=== PATIENT | male | born 1955 | race Caucasian/White ===

== ENCOUNTER 2021-07-11 09:40 | Outpatient (REF) | payer BC, SELFPAY ==
--- NOTE | ~2021-07-11 | XR_ITS ---
EXAMINATION: XR CHEST CLINICAL INFORMATION: Chronic cough COMPARISON: None TECHNIQUE: 2 views of the chest were obtained. FINDINGS: Normal symmetric lung volumes. No parenchymal consolidation. No pleural effusion. No pneumothorax. Cardiomediastinal silhouette and pulmonary vascularity are within normal limits. Aorta is atherosclerotic. No acute osseous abnormalities. XR/XR chest 2V IMPRESSION: Unremarkable examination.
--- NOTE | ~2021-07-11 | XR_ITS ---
EXAMINATION: XR SINUSES CLINICAL INFORMATION: Sinusitis. Chronic cough. COMPARISON: None TECHNIQUE: 3 views of the sinuses were obtained. FINDINGS: Frontal sinuses appear well aerated although the right frontal sinus is mildly hypoplastic compared with the left. Cannot exclude some mild mucosal thickening of the right maxillary sinus. Ethmoid sinuses appear well aerated. The mastoid air cells are well aerated. No gross osseous fracture. XR/XR sinus min 3V IMPRESSION: Possible mild right maxillary sinus disease. This may be further evaluated with sinus CT series if clinically indicated.
== END 2021-07-11 09:41 | disposition home or self-care (01) ==
LOC: HO.XRAY 09:40
PROVIDERS: Visit Provider Otolaryngology
DX: J32.9 Chronic sinusitis, unspecified (principal); R05.9 Cough, unspecified; J33.8 Other polyp of sinus
CPT/HCPCS: 70220; 71046

== ENCOUNTER 2024-10-14 14:49 | Outpatient (AMB) | payer BC, SELFPAY ==
--- OUTSIDE RECORDS SUMMARY | 2024-10-14 16:12 | XMS_ITS | Patient Health Record ---
Author Organization [facility] Address [address] [facility] [place] [address] Care Team Providers Care Warp Bleaching Vat Tender Name Role Phone Maria Luisa MANCIA, Fely Primary Care Provide r Unavailable Gabby Moore Unavailable [phone] Allergies Allergen (clinical drug ingredient) Drug/Non Drug Allergy documented on EMR Reaction Allergy Type Onset Date Status Dander dander (uncoded) sinus reaction Allergy Active Pollen Pollen sinus reaction Allergy Activ e Substance with sulfonamide structure and antibacterial mechanism of action (substance) Sulfa Antibiotics rash Drug Allergy Active Reason For Referral No Information Medications Medication SIG (Take, Route, Frequency, Duration) Notes Start Date End Date Status Losartan Potassium 50 MG 1 tablet Orally Once a day; Duration: 30 day(s) Active Levothyroxine Sodium 137 MCG 1 tablet in the morning on an empty stomach Orally Once a day; Duration: 30 day(s) Active Vitamin D Active Fish Oil Active Magnesium Active B Complex Active Walking Boot/Pneumatic As directed Wear Daily; Duration: Until further notice Active Voltaren 1 % as directed Externally 02/13/2023 Active Social History Tobacco Use: Social History Observation Description Date Details (start date - stop date) Never Smoker NA - NA Tobacco Use/Smoking Question Answer Notes Are you a: nonsmoker Additional Findings: Tobacco Non-User Current no n-smoker Tobacco use other than smoking: Question Answer Notes Are you an other tobacco user? No Problems Problem Type SNOMED Code ICD Code Onset Dates Problem Status W/U Status Risk Notes Problem Acquired hallux rigidus (6051302) Hallux rigidus, left foot (M20.22) Active confirmed Problem Localized, primary osteoarthritis of the ankle and/or foot (091758108) Primary osteoarthritis of left foot (M19.072) Active confirmed Problem Acquired hallux valgus (00198029) Hallux valgus, left (M20.12) Active confirmed Vital Signs Blood pressure diastolic 85 mm Hg 01/22/2024 Height 5ft10.5in in 01/22/2024 Blood pressure systolic 129 mm Hg 01/22/2024 Weight 190 lbs 01/22/2024 BMI 26.87 kg/m2 01/22/2024 Encounters Encounter Location Date Provider Diagnosis Surgery [facility] ([facility]) [address] [place] [address] 12/26/2023 Gabby Perica [facility] [address] [address] 12/12/2023 Gabby Perica Pain in left foot M79.672 ; Hallux limitus, left M20.5X2 ; Hallux valgus, left M20.12 and Primary osteoarthritis of left foot M19.072 [facility] [address] [address] 01/01/2024 Gabby Perica Hallux limitus, left M20.5X2 [facility] [address] [address] 01/08/2024 Gabby Perica Hallux limitus, left M20.5X2 [facility] [address] [address] 01/22/2024 Gabby Perica Hallux limitus, left M20.5X2 [facility] [address] [address] 12/27/2023 Gabby Perica [facility] [address] [address] 12/27/2023 Gabby Perica [facility] [address] [address] 01/02/2024 Gabby Perica Assessments Encounter Date Diagnosis (ICD Code) Assessment Notes Treatment Notes Treatment Clinical Notes Section Notes 12/12/2023 Pain in left foot (ICD-10 - M79.672) 01/01/2024 Hallux limitus, left (ICD-10 - M20.5X2) 01/08/2024 Hallux limitus, left (ICD-10 - M20.5X2) 01/22/2024 Hallux limitus, left (ICD-10 - M20.5X2) 12/12/2023 Hallux valgus, left (ICD-10 - M20.12) 12/12/2023 Hallux limitus, left (ICD-10 - M20.5X2) 12/12/2023 Primary osteoarthritis of left foot (ICD-10 - M19.072) Plan Of Treatment Pending Test Test Name Order Date X ray : Foot, left 3V 02/13/2023 X ray : Foot, left 3V 12/12/2023 X ray : Foot, left 3V 01/01/2024 X ray : Foot, left 3V 01/08/2024 X ray : Foot, left 3V 01/22/2024 Insurance Providers Payer Name Payer Address Payer Phone Subscriber Number Group Number Insured Name Patient Relationship to Insured Coverage Start Date Coverage End Date Valentino Parnell [address] [place] [address] [id number] Poncho Aguila Self - patient is the insured Medical (General) History Medical History History ICD Code Arthritis High blood pressure thyroid Surgical History Surgery Date(Month/Year) foot surgery, right 2018 left foot surgery colonoscopy wisdom teeth extraction Mod Lezama Left or possible 1st MPJ Imp lant Left P/B 12/26/23
--- OUTSIDE RECORDS SUMMARY | 2024-10-14 16:12 | XMS_ITS | Clinical Summary ---
Author Organization 175 [facility] Address [address] [place] [address] Phone Care Team Providers Care Space Studies Faculty Member Name Role Phone Fely Glass MD Primary Care Provide r Allergies Active Allergy Reactions Criticality Noted Date Comments Cat Dander 03/07/2011 Dog Dander 03/07/2011 House Dust 03/07/2011 Lisinopril 06/13/2019 heart fluttering Pollen Extracts 03/07/2011 Sulfa (Sulfonamide Antibiotics) Hives,Rash Low 07/27/2005 Medications UNABLE TO FIND Allergy Injection (ALLERGY MONTHLY INJECTION, HISTORIC) Sig - Route: Inject as directed. - Injection Active calcipotriene-b etamethasone (TACLONEX) ointment Apply sparingly once or twice daily to psoriasis as needed AVOID SENSITIVE SKIN 1 Active calcium carbonate (TUMS) 500 mg (200 mg elemental calcium) chewable tablet 1 Tablet. 2 Active cholecalciferol (VITAMIN D-3) 10 mcg (400 unit) tablet Take 10 mcg by mouth. 2 Active cyclobenzaprine (FLEXERIL) 10 mg tablet Take 1 Tab by mouth 2 times daily as needed for Muscle spasms. 1 Active fluticasone propionate (FLONASE) 50 mcg/actuation nasal spray INHALE 2 SPRAYS INTO EACH NOSTRIL EVERY DAY 2 Active meclizine (ANTIVERT) 12.5 mg tablet See Instructions, TAKE 1 TABLET BY MOUTH 3 TIMES A DAY, # 60 tablet, 0 Refills, Maintenance, 12/10/22 9:04:00 EDT, [facility]/pharmacy #[id number], 173.2, cm, 10/04/22 13:56:00 EDT, Height 3 Active naproxen (NAPROSYN) 500 mg tablet Take 1 Tab by mouth 2 times daily (with meals). As needed for pain 0 Active omega-3 acid ethyl esters (LOVAZA) 1 gram capsule Take by mouth. 2 Active OMEGA-3 FATTY ACIDS-FISH OIL ORAL Take by mouth. Activ e sildenafiL (VIAGRA) 50 mg tablet 1 po hs prn erectile dysfunction 2 Active tacrolimus (PROTOPIC) 0.03 % ointment APPLY SPARINGLY TWICE A DAY TO ECZEMA ON EYELIDS IF ITCHY 1 Active triamcinolone (KENALOG) 0.1 % cream 80 gms compounded with Cerave 240mg; apply bid 6 Active levothyroxine (SYNTHROID, LEVOTHROID) 125 mcg tablet Take 1 Tablet by mouth daily. 2 Active vitamin E acetate (VITAMIN E ORAL) Take by mouth. 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 AHI 30. 33 unclassified apneas, 77 obstructive apneas and 72 hypopneas. Average oxygen saturation 92% with oxygen vicente 82%. Obstructive sleep apnea-severe with mostly obstructive apneas and hypopneas; frequent unclassified apneas and without nocturnal hypoxemia based on 2021 home sleep test. COVID-19 02/04/2021 Overview (03/24/2024): 02/15 Hypertension 01/14/2019 Psoriasis 05/18/2016 Overview (03/24/2024): Psoriasis 05/12 right leg Sebaceous cyst 08/09/2015 Hand arthritis 04/13/2015 Hypothyroid 04/27/2011 Diverticulitis of colon without hemorrhage 12/15 Overview (03/24/2024): Incidental finding at colonoscopy 12/16/2007. Allergic rhinitis 12/18/2005 Immunizations Name Administration Dates Next Due Influenza Quadravalent, MDCK , 0.5ml, with preservative (Flucelvax) 6mo and older 11/14/2017 Influenza trivalent, 0.5mL, preservative free (Fluarix; FluLaval; Fluzone) ages 6mo and older (Afluria) 3 years and older 12/22/2019,01/05/2016,12/23/2014,2013,01/15/2013,12/28/2011,03/22/2011 Influenza, Unspecified 12/14/2018 Td Tetanus diptheria (Tdvax) 7yo and older 02/12/2019 Td, Unspecified 09/23/2001 Tdap Tetanus diptheria acell ular pertussis (Boostrix; Adacel) 7yo and older 03/07/2011 Surgical History Surgery Date Site/Laterality Comments EXCISION BENIGN SKIN LESION TRUNK / ARM / LEG PROCEDURE: GA EXCISION TUMOR SOFT TISSUE BACK/FLANK SUBQ <3CM; COMMENT: arm and flank - fatty tumors BUNIONECTOMY PROCEDURE: GA CORRJ HLX VLGS BNCTY SESMDC W/DOUBLE OSTEOTOMY; COMMENT: Bone fragment removed. COLONOSCOPY 12/16/2007 PROCEDURE: GA COLONOSCOPY FLX DX W/COLLJ SPEC WHEN PFRMD; COMMENT: diverticulosis LIPOMA RESECTION 03/14/2021 Bilateral PROCEDURE: SKIN TISSUE EXCISION(LIPOMA); COMMENT: excision of 2 angiolipomas (right and left flank) - Dr. Connor Velazco Medical History Medical History Date Comments Allergic rhinitis, cause unspecified DX:Allergic rhinitis, cause unspecified Diverticulosis of colon (wit hout mention of hemorrhage) 12/16/2007 DX:Diverticulosis of colon ( without mention of hemorrhage); COMMENT: Incidental finding at colonoscopy 12/16/2007. Special screening for malign ant neoplasms, colon 12/16/2007 DX:Special screening for mal ignant neoplasms, colon; COMMENT: Negative colonoscopy 12/16/2007, no colon cancer screening needed for 10 years. 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 CHF, hip fx, epilepsy Maternal Grandfather [place] x br onchitis Maternal Grandmother [place] Mother (Age 69) Liver fail ure - alcohol Paternal Grandfather [place] Paternal Grandmother [place] Sister 1 Alive Healthy? Sister 2 Alive Healthy? Son 1 Alive Healthy Son 2 Alive Healhty Social History Tobacco Use Types Packs/Day Years Used Date Smoking Tobacco: Former Cigarettes Q uit: 08/26/2010 Smokeless Tobacco: Never Alcohol Use Standard Drinks/Week Comments Yes 0 (1 standard drink = 0.6 oz pur e alcohol) Sex and Gender Information Value Date Recorded Sex Assigned at Not on file Legal Sex Male 1:07 AM EST Gender Identity Not on file Sexual Orientation Not on file Obstetrics History Last Filed Vital Signs Vital Sign Reading Time Taken Comments Blood Pressure 128/82 09/20/2023 4:26 PM EDT Sitting L Arm Pulse 95 09/20/2023 4:00 PM EDT Temperature - - Respiratory Rate - - Oxygen Saturation - - Inhaled Oxygen Concentration - - Weight 91.3 kg (201 lb 3.2 oz) 09/20/2023 4:00 PM EDT Height 177.8 cm (5' 10 ) 09/20/2023 4:0 0 PM EDT Body Mass Index 28.87 09/20/2023 4:00 PM EDT Plan of Treatment Upcoming Encounters Date Type Department Care Team (Late st Contact Info) Description 11/19/2024 3:35 PM EDT Office Visit Pulmonolgy - [place] [address] [facility] [address] [place] [id number] Jessica Lobato, KAILASH [address] [facility] [address] [place] [address] Health Maintenance Due Date Last Done Comments COVID-19 Vaccine (#1) 1962 Pneumococcal Vaccine: 50+ Years (1 of 2 - PCV) 1976 Zoster Vaccines (1 of 2) 1976 Abdominal Aortic Aneurysm (AAA) Screen 02/04/2022 Social Influencers of Health Screening 02/04/2022 Falls Risk Assessment 2022 Hypertension/CHF/CAD Annual BMP Blood Test 10/05/2022 10/05/2021 Depression Screening 02/27/2024 Influenza Vaccine (#1) 2024 0, 12/14/2018, 11/14/2017, Additional history exists Cholesterol Screening (Lipid Panel) 10/05/2026 10/05/2021 Colorectal Cancer Screening: Colonoscopy 01/10/2029 01/10/2019 DTaP,Tdap,and Td Vaccines (4 - Td or Tdap) 02/12/2029 02/12/2019, 03/07/2011, 09/23/2001 RSV Immunization Adult Patients (1 - 1-dose 75+ series) 2032 Hepatitis C Screening Completed 09/02/2013 HIB Vaccines Aged Out No longer eligi ble based on patient's age to complete this topic HPV Vaccines Aged Out No longer eligi ble based on patient's age to complete this topic Hepatitis A Vaccines Aged Out No long er eligible based on patient's age to complete this topic Hepatitis B Vaccines Aged Out No long er eligible based on patient's age to complete this topic IPV Vaccines Aged Out No longer eligi ble based on patient's age to complete this topic MMR Vaccines Aged Out No longer eligi ble based on patient's age to complete this topic Meningococcal ACWY Vaccine Aged Out N o longer eligible based on patient's age to complete this topic Meningococcal B Vaccine Aged Out No l onger eligible based on patient's age to complete this topic RSV Immunization Patients Under 20 months Aged Out No longer eligible based on patient's age to complete this topic Varicella Vaccines Aged Out No longer eligible based on patient's age to complete this topic Procedures Procedure Name Priority Date/Time Associated Diagnosis Comments HM ANNUAL BMP BLOOD TEST Routine 10/05/2021 LIPID PANEL Routine 10/05/2021 COLONOSCOPY Routine 01/10/2019 HEPATITIS C SCREENING Routine 09/02/2013 from Last 3 Months or Most Recently Relevant to Health Maintenance Results * Annual BMP Blood Test (10/05/2021) [facility] Annual BMP Blood Test abstracted [facility] Provider HEALTH MAINTENANCE Final Result * (ABNORMAL) Lipid panel (10/05/2021) [facility] LDL/HDL Ratio 4 0 - 4 Triglycerides 155(A) 0 - 150 mg/dL Cholesterol 192 0 - 200 mg/dL HDL 55 >=40 mg/dL LDL Cholesterol 106(A) 0 - 100 mg/dL Blood Venous blood specimen / Unknown Result [facility] Provider LAB BLOOD ORDERABLES Katherine l Result * Colonoscopy (01/10/2019) [facility] Colonoscopy no interpretation , abstracted Anatomical Region Laterality Modality Other [facility] Provider HEALTH MAINTENANCE Final Result * Hepatitis C Screening (09/02/2013) [facility] Hepatitis C Screening abstracted [facility] Provider HEALTH MAINTENANCE Final Result from Last 3 Months or Most Recently Relevant to Health Maintenance Insurance [facility] Care Teams Space Studies Faculty Member Relationship Specialty Start Date End Date Fely Glass MD [address] [place] [address] [place] PCP - General 10/29/23
== END 2024-10-14 14:53 | disposition home or self-care (01) ==
LOC: HO.HMGAL 14:49
PROVIDERS: PCP Internal Medicine; Visit Provider Registered Nurse Emergency
DX: J30.89 Other allergic rhinitis (principal)
CPT/HCPCS: 95117; 95165

== ENCOUNTER 2024-11-03 10:30 | Outpatient (AMB) | payer BC, SELFPAY ==
--- OUTSIDE RECORDS SUMMARY | 2023-12-26 10:45 | XMS_ITS ---
Author Organization [facility] Address [address] [facility] [place] [address] Care Team Providers Care Glass Cut Off Supervisor Name Role Phone Maria Luisa MANCIA, Fely Primary Care Provide r Unavailable Gabby Moore Unavailable [phone] Encounters Encounter Location Date Provider Diagnosis Surgery [facility] ([facility]/[address] [place] [address] 12/26/2023 Gabby Moore Plan Of Treatment No Information Progress Notes * Poncho AGUILA BDOB: [birth year] (69 yo M)Acc No.[id number]:12/26/2023 Patient: Breann JOVELPoncho Provider: Andrei Moore DPM :1955 A ge:68 Y S ex:Male Date:12/26/2023 Address:[address] [facility] [place] Pcp:Fely Glass MD * Images: * The named appointment provid er may or may not be the originator of this progress note, and it is not deemed complete until electronically signed by the appointment provider. Sign off status: Pending * Provider: Andrei Moore DPM Date: 1 Generated for Sofia ng/Faxing/eTransmitting on: 0 11/03/2024 12:39 PM EDT
--- OUTSIDE RECORDS SUMMARY | 2024-11-03 12:40 | XMS_ITS | Patient Health Record ---
Author Organization [facility] Address [address] [facility] [place] [address] Care Team Providers Care Tobacco Stripper Hand Name Role Phone Maria Luisa MANCIA, Fely Primary Care Provide r Unavailable Gabby Moore Unavailable [phone] Allergies Allergen (clinical drug ingredient) Drug/Non Drug [...] Status Risk Notes Problem Acquired hallux rigidus (5914248) Hallux rigidus, left foot (M20.22) Active confirmed Problem Localized, primary osteoarthritis of the ankle and/or foot (573387817) Primary osteoarthritis of left foot (M19.072) Active confirmed Problem Acquired hallux valgus (09615304) Hallux valgus, left (M20.12) Active confirmed Vital Signs Blood pressure diastolic 85 mm Hg 01/22/2024 Height 5ft10.5in in 01/22/2024 Blood pressure systolic 129 mm Hg 01/22/2024 Weight 190 lbs 01/22/2024 BMI 26.87 kg/m2 01/22/2024 Encounters Encounter Location Date Provider Diagnosis Surgery [facility] ([facility]) [address] [place] [address] 12/26/2023 Gabby Perica [facility] [address] [address] 12/12/2023 Gabby Perica Pain in left foot M79.672 ; Hallux limitus, left M20.5X2 ; Hallux valgus, left M20.12 and Primary osteoarthritis of left foot M19.[address] [facility] [address] [address] 01/01/2024 Gabby Perica Hallux limitus, left M20.5X2 [facility] [address] [address] 01/08/2024 Gabby Perica Hallux limitus, left M20.5X2 [facility] [address] [address] 01/22/2024 Gabby Perica Hallux limitus, left M20.5X2 [facility] [address] [address] 12/27/2023 Gabby Perica [facility] [address] [address] 12/27/2023 Gabby Perica [facility] [address] [address] 01/02/2024 Gabby Perica Assessments Encounter Date Diagnosis [...] Date Coverage End Date Valentino Parnell [address] [place] [address] [id number] Poncho Aguila Self - patient is the insured Medical (General) History Medical History History ICD Code Arthritis High blood pressure thyroid Surgical History Surgery Date(Month/Year) foot surgery, right 2018 left foot surgery colonoscopy wisdom teeth extraction Mod Lezama Left or possible 1st MPJ Imp lant Left P/B 12/26/23
--- OUTSIDE RECORDS SUMMARY | 2024-11-03 12:40 | XMS_ITS | Clinical Summary ---
Author Organization 175 [facility] Address [address] [facility] [address] Phone Care Team Providers Care Minister Helper Name Role Phone Fely Glass MD Primary [...] tablet, 0 Refills, Maintenance, 12/10/22 9:04:00 EDT, [facility]/pharmacy #[id number], 173.2, cm, 10/04/22 13:56:00 EDT, Height [...] 06/10/2021 Obstructive sleep apnea 05/23/2021 Overview (03/24/2024): [facility] Home sleep test 05/15/2021; weight 185; BMI [...] LESION TRUNK / ARM / LEG PROCEDURE: IN EXCISION TUMOR SOFT TISSUE BACK/FLANK SUBQ <3CM; COMMENT: arm and flank - fatty tumors BUNIONECTOMY PROCEDURE: IN CORRJ HLX VLGS BNCTY SESMDC W/DOUBLE OSTEOTOMY; COMMENT: Bone fragment removed. COLONOSCOPY 12/16/2007 PROCEDURE: IN COLONOSCOPY FLX DX W/COLLJ SPEC WHEN PFRMD; [...] Description 11/19/2024 3:35 PM EDT Office Visit Pulmon[address] [place] [address] Jessica Lobato, KAILASH [address] [place] [address] Health Maintenance Due Date Last Done Comments [...] Results * Annual BMP Blood Test (10/05/2021) [facility] Annual BMP Blood Test abstracted [facility] Provider HEALTH MAINTENANCE Final Result * (ABNORMAL) Lipid panel (10/05/2021) [facility] LDL/HDL Ratio 4 0 - 4 Triglycerides 155(A) 0 - 150 mg/dL Cholesterol 192 0 - 200 mg/dL HDL 55 >=40 mg/dL LDL Cholesterol 106(A) 0 - 100 mg/dL Blood Venous blood specimen / Unknown Result [facility] Provider LAB BLOOD ORDERABLES Katherine l Result * Colonoscopy (01/10/2019) [facility] Colonoscopy no interpretation , abstracted Anatomical Region Laterality Modality Other [facility] Provider HEALTH MAINTENANCE Final Result * Hepatitis C Screening (09/02/2013) [facility] Hepatitis C Screening abstracted [facility] Provider HEALTH MAINTENANCE Final Result from Last 3 Months or Most Recently Relevant to Health Maintenance Insurance [facility] Care Teams Minister Helper Relationship Specialty Start Date End Date Fely Glass MD [address] [place] [address] [place] PCP - General 10/29/23
== END 2024-11-03 10:53 | disposition home or self-care (01) ==
LOC: HO.HMGAL 10:30
PROVIDERS: PCP Internal Medicine; Visit Provider Registered Nurse Emergency
DX: J30.89 Other allergic rhinitis (principal)
CPT/HCPCS: 95117; 95165

== ENCOUNTER 2024-11-17 11:08 | Outpatient (AMB) | payer BC, SELFPAY ==
--- OUTSIDE RECORDS SUMMARY | 2023-12-26 10:45 | XMS_ITS ---
Author Organization [facility] Address [address] [facility] [place] [address] Care Team Providers Care Manager Shell Name Role Phone Maria Luisa MANCIA, Fely Primary Care Provide r Unavailable Gabby Moore Unavailable [phone] Encounters Encounter Location Date Provider Diagnosis Surgery [facility] ([facility]/[address] [place] [address] 12/26/2023 Gabby Moore Plan Of Treatment No Information Progress Notes * Poncho AGUILA BDOB: [birth year] (69 yo M)Acc No.[id number]:12/26/2023 Patient: Breann JOVELPoncho Provider: Andrei Moore DPM :1955 A ge:68 Y S ex:Male Date:12/26/2023 Address:[address] [facility] [place] Pcp:Fely Glass MD * Images: * The named appointment provid er may or may not be the originator of this progress note, and it is not deemed complete until electronically signed by the appointment provider. Sign off status: Pending * Provider: Andrei Moore DPM Date: 1 Generated for Sofia ng/Fagiovannig/eTransmitting on: 0 11/17/2024 01:48 PM EDT
--- OUTSIDE RECORDS SUMMARY | 2024-11-17 13:48 | XMS_ITS | Clinical Summary ---
Author Organization 175 [facility] Address [address] [place] [address] Phone Care Team Providers Care Assistant Cook Name Role Phone Fely Glass MD Primary [...] tablet, 0 Refills, Maintenance, 12/10/22 9:04:00 EDT, [facility]/pharmacy #[id number], 173.2, cm, 10/04/22 13:56:00 EDT, [...] 06/10/2021 Obstructive sleep apnea 05/23/2021 Overview (03/24/2024): [facility] Home sleep test 05/15/2021; weight [...] LESION TRUNK / ARM / LEG PROCEDURE: [place] EXCISION TUMOR SOFT TISSUE BACK/FLANK SUBQ <3CM; COMMENT: arm and flank - fatty tumors BUNIONECTOMY PROCEDURE: [place] CORRJ HLX VLGS BNCTY SESMDC W/DOUBLE OSTEOTOMY; COMMENT: Bone fragment removed. COLONOSCOPY 12/16/2007 PROCEDURE: [place] COLONOSCOPY FLX DX W/COLLJ SPEC WHEN PFRMD; [...] Description 11/19/2024 3:35 PM EDT Office Visit Pulmonology - [address] [place] [address] Jessica Lobato, KAILASH [address] [place] [address] Health Maintenance Due Date Last [...] Results * Annual BMP Blood Test (10/05/2021) [facility] Annual BMP Blood Test abstracted [facility] Provider HEALTH MAINTENANCE Final Result * (ABNORMAL) Lipid panel (10/05/2021) [facility] LDL/HDL Ratio 4 0 - 4 Triglycerides 155(A) 0 - 150 mg/dL Cholesterol 192 0 - 200 mg/dL HDL 55 >=40 mg/dL LDL Cholesterol 106(A) 0 - 100 mg/dL Blood Venous blood specimen / Unknown [facility] Provider LAB BLOOD ORDERABLES Katherine l Result * Colonoscopy (01/10/2019) [facility] Colonoscopy no interpretation , abstracted Anatomical Region Laterality Modality Other [facility] Provider HEALTH MAINTENANCE Final Result * Hepatitis C Screening (09/02/2013) [facility] Hepatitis C Screening abstracted [facility] Provider HEALTH MAINTENANCE Final Result from Last 3 Months or Most Recently Relevant to Health Maintenance Insurance [facility] Care Teams Assistant Cook Relationship Specialty Start Date End Date Fely Glass MD [address] [place] [address] [place] PCP - General 10/29/23
--- OUTSIDE RECORDS SUMMARY | 2024-11-17 13:49 | XMS_ITS | Patient Health Record ---
Author Organization [facility] Address [address] [facility] [place] [address] Care Team Providers Care Appeals Coordinator Name Role Phone Maria Luisa MANCIA, Fely Primary Care Provide r Unavailable Gabby Moore Unavailable [phone] Allergies Allergen (clinical drug ingredient) Drug/Non Drug [...] Status Risk Notes Problem Acquired hallux rigidus (5751484) Hallux rigidus, left foot (M20.22) Active confirmed Problem Localized, primary osteoarthritis of the ankle and/or foot (692245214) Primary osteoarthritis of left foot (M19.072) Active confirmed Problem Acquired hallux valgus (31628818) Hallux valgus, left (M20.12) Active confirmed Vital Signs Blood pressure diastolic 85 mm Hg 01/22/2024 Height 5ft10.5in in 01/22/2024 Blood pressure systolic 129 mm Hg 01/22/2024 Weight 190 lbs 01/22/2024 BMI 26.87 kg/m2 01/22/2024 Encounters Encounter Location Date Provider Diagnosis Surgery [facility] ([facility]) [address] [place] [address] 12/26/2023 Gabby Perica [facility] [address] [address] 12/12/2023 Gabby Perica Pain in left foot M79.672 ; Hallux limitus, left M20.5X2 ; Hallux valgus, left M20.12 and Primary osteoarthritis of left foot M19.[address] [facility] [address] [address] 01/01/2024 Gabby Perica Hallux limitus, left M20.5X2 [facility] [address] [address] 01/08/2024 Gabby Perica Hallux limitus, left M20.5X2 [facility] [address] [address] 01/22/2024 Gabby Perica Hallux limitus, left M20.5X2 [facility] [address] [address] 12/27/2023 Gabby Perica [facility] [address] [address] 12/27/2023 Gabby Perica [facility] [address] [address] 01/02/2024 Gabby Perica Assessments Encounter Date Diagnosis [...] Date Coverage End Date Valentino Parnell [address] [place] [address] [id number] Poncho Aguila Self - patient is the insured Medical (General) History Medical History History ICD Code Arthritis High blood pressure thyroid Surgical History Surgery Date(Month/Year) foot surgery, right 2018 left foot surgery colonoscopy wisdom teeth extraction Mod Lezama Left or possible 1st MPJ Imp lant Left P/B 12/26/23
== END 2024-11-17 11:33 | disposition home or self-care (01) ==
LOC: HO.HMGAL 11:08
PROVIDERS: PCP Internal Medicine; Visit Provider Registered Nurse Emergency
DX: J30.89 Other allergic rhinitis (principal)
CPT/HCPCS: 95117; 95165

== ENCOUNTER 2024-12-15 15:30 | Outpatient (AMB) | payer BC, SELFPAY ==
--- OUTSIDE RECORDS SUMMARY | 2023-12-11 11:45 | XMS_ITS ---
Author Organization [facility] Address [address] [place] [address] Care Team Providers Care Home Mission Worker Name Role Phone Maria Luisa MANCIA, Fely Primary Care Provide r Unavailable Gabby Moore Unavailable [phone] Medications Medication SIG (Take, Route, Frequency, Duration) Notes Start Date End Date Status Voltaren 1 % as directed Externally 02/13/2023 Active Losartan Potassium 50 MG 1 tablet Orally Once a day; Duration: 30 day(s) Active Levothyroxine Sodium 137 MCG 1 tablet in the morning on an empty stomach Orally Once a day; Duration: 30 day(s) Active Encounters Encounter Location Date Provider Diagnosis [address] [address] 12/11/2023 Gabby Moore Plan Of Treatment No Information Progress Notes * Poncho AGUILA BDOB: [birth year] (69 yo M)Acc No.[id number]:12/11/2023 Progress Note Patient: Poncho MARRUFO Provider: Andrei Moore DPM :1955 A ge:68 Y S ex:Male Date:12/11/2023 Address:[address], [place] Pcp:Fely Glass MD Subjective: * Chief Complaints: [...] DPM Date: Generated for Sofia grimaldo/Lety/Radha on: 07:44 PM EDT
--- OUTSIDE RECORDS SUMMARY | 2023-12-26 10:45 | XMS_ITS ---
Author Organization [facility] Address [address] [facility] [place] [address] Care Team Providers Care Commercial Loan Underwriter Name Role Phone Maria Luisa MANCIA, Fely Primary Care Provide r Unavailable Gabby Moore Unavailable [phone] Encounters Encounter Location Date Provider Diagnosis Surgery [facility] ([facility]/[address] [place] [address] 12/26/2023 Gabby Moore Plan Of Treatment No Information Progress Notes * Poncho AGUILA BDOB: [birth year] (69 yo M)Acc No.[id number]:12/26/2023 Patient: Breann JOVELPoncho Provider: Andrei Moore DPM :1955 A ge:68 Y S ex:Male Date:12/26/2023 Address:[address] [facility] [place] Pcp:Fely Glass MD * Images: * The named appointment provid er may or may not be the originator of this progress note, and it is not deemed complete until electronically signed by the appointment provider. Sign off status: Pending * Provider: Andrei Moore DPM Date: Generated for Sofia ng/Faxing/eTransmitting on: 07:43 PM EDT
--- OUTSIDE RECORDS SUMMARY | 2024-12-15 19:44 | XMS_ITS | Patient Health Record ---
Author Organization [facility] Address [address] [facility] [place] [address] Care Team Providers Care Head Of Data Name Role Phone Maria Luisa MANCIA, Fely Primary Care Provide r Unavailable Gabby Moore Unavailable [phone] Allergies Allergen (clinical drug ingredient) Drug/Non Drug [...] Status Risk Notes Problem Acquired hallux rigidus (1267352) Hallux rigidus, left foot (M20.22) Active confirmed Problem Localized, primary osteoarthritis of the ankle and/or foot (441234714) Primary osteoarthritis of left foot (M19.072) Active confirmed Problem Acquired hallux valgus (72153925) Hallux valgus, left (M20.12) Active confirmed Vital Signs Blood pressure diastolic 85 mm Hg 01/22/2024 Height 5ft10.5in in 01/22/2024 Blood pressure systolic 129 mm Hg 01/22/2024 Weight 190 lbs 01/22/2024 BMI 26.87 kg/m2 01/22/2024 Encounters Encounter Location Date Provider Diagnosis Surgery [facility] ([facility]) [address] [place] [address] 12/26/2023 Gabby Perica [facility] [address] [address] 01/01/2024 Gabby Perica Hallux limitus, left M20.5X2 [facility] [address] [address] 01/08/2024 Gabby Perica Hallux limitus, left M20.5X2 [facility] [address] [address] 01/22/2024 Gabby Perica Hallux limitus, left M20.5X2 [facility] [address] [address] 12/27/2023 Gabby Perica [facility] [address] [address] 12/27/2023 Gabby Perica [facility] [address] [address] 01/02/2024 Gabby Bacaa Assessments Encounter Date Diagnosis (ICD Code) Assessment Notes Treatment Notes Treatment Clinical Notes Section Notes 01/01/2024 Hallux limitus, left (ICD-10 - M20.5X2) 01/08/2024 Hallux limitus, left (ICD-10 - M20.5X2) 01/22/2024 Hallux limitus, left (ICD-10 - M20.5X2) Plan Of Treatment Pending Test Test Name [...] Start Date Coverage End Date Valentino Parnell [address] [place] [address] [id number] Poncho Aguila Self - patient is the insured Medical (General) History Medical History History ICD Code Arthritis High blood pressure thyroid Surgical History Surgery Date(Month/Year) foot surgery, right 2018 left foot surgery colonoscopy wisdom teeth extraction Mod Lezama Left or possible 1st MPJ Imp lant Left P/B 12/26/23
== END 2024-12-15 15:32 | disposition home or self-care (01) ==
LOC: HO.HMGAL 15:30
PROVIDERS: PCP Internal Medicine; Visit Provider Registered Nurse Emergency
DX: J30.89 Other allergic rhinitis (principal)
CPT/HCPCS: 95117; 95165

== ENCOUNTER 2024-12-29 11:53 | Outpatient (AMB) | payer BC, SELFPAY ==
--- OUTSIDE RECORDS SUMMARY | 2023-12-11 10:45 | XMS_ITS ---
Author Organization [facility] Address [address] [place] [address] Care Team Providers Care Continuity Person Name Role Phone Maria Luisa MANCIA, Fely Primary Care Provide r Unavailable Gabby Moore Unavailable [phone] Medications Medication SIG (Take, Route, Frequency, Duration) Notes Start Date End Date Status Voltaren 1 % as directed Externally 02/13/2023 Active Losartan Potassium 50 MG 1 tablet Orally Once a day; Duration: 30 day(s) Active Levothyroxine Sodium 137 MCG 1 tablet in the morning on an empty stomach Orally Once a day; Duration: 30 day(s) Active Encounters Encounter Location Date Provider Diagnosis [address] [address] 12/11/2023 Gabby Moore Plan Of Treatment No Information Progress Notes * Poncho AGUILA BDOB: [birth year] (69 yo M)Acc No.[id number]:12/11/2023 Progress Note Patient: Poncho MARRUFO Provider: Andrei Moore DPM :1955 A ge:68 Y S ex:Male Date:12/11/2023 Address:[address], [place] Pcp:Fely Glass MD Subjective: * Chief Complaints: [...] DPM Date: Generated for Sofia grimaldo/Lety/Radha on: 02/29/2024 03:04 PM EST
--- OUTSIDE RECORDS SUMMARY | 2023-12-26 09:45 | XMS_ITS ---
Author [facility] Address [address] [facility] [place] [address] Care Team Providers Care Recruiting And Selection Consultant Name Role Phone Maria Luisa MANCIA, Fely Primary Care Provide r Unavailable Gabby Moore Unavailable [phone] Encounters Encounter Location Date Provider Diagnosis Surgery [facility] ([facility]/[address] [place] [address] 12/26/2023 Gabby Moore Plan Of Treatment No Information Progress Notes * Poncho AGUILA BDOB: [birth year] (69 yo M)Acc No.[id number]:12/26/2023 Patient: Breann JOVELPoncho Provider: Andrei Moore DPM :1955 A ge:68 Y S ex:Male Date:12/26/2023 Address:[address] [facility] [place] Pcp:Fely Glass MD * Images: * The named appointment provid er may or may not be the originator of this progress note, and it is not deemed complete until electronically signed by the appointment provider. Sign off status: Pending * Provider: Andrei Moore DPM Date: Generated for Sofia grimaldo/Fagiovannig/eTransmitting on: 02/29/2024 03:04 PM EST
--- OUTSIDE RECORDS SUMMARY | 2024-12-29 15:05 | XMS_ITS | Patient Health Record ---
Author Organization [facility] Address [address] [facility] [place] [address] Care Team Providers Care Fare Enforcement Officer Name Role Phone Maria Luisa MANCIA, Fely Primary Care Provide r Unavailable Gabby Moore Unavailable [phone] Allergies Allergen (clinical drug ingredient) Drug/Non Drug [...] Status Risk Notes Problem Acquired hallux rigidus (1053905) Hallux rigidus, left foot (M20.22) Active confirmed Problem Localized, primary osteoarthritis of the ankle and/or foot (404049388) Primary osteoarthritis of left foot (M19.072) Active confirmed Problem Acquired hallux valgus (07775025) Hallux valgus, left (M20.12) Active confirmed Vital Signs Blood pressure diastolic 85 mm Hg 01/22/2024 Height 5ft10.5in in 01/22/2024 Blood pressure systolic 129 mm Hg 01/22/2024 Weight 190 lbs 01/22/2024 BMI 26.87 kg/m2 01/22/2024 Encounters Encounter Location Date Provider Diagnosis [facility] [address] 01/01/2024 Gabby Perica Hallux limitus, left M20.5X2 [address] [address] 01/08/2024 Gabby Perica Hallux limitus, left M20.5X2 [address] [address] 01/22/2024 Gabby Perica Hallux limitus, left M20.5X2 [address] [address] 01/02/2024 Gabby Perica Assessments Encounter Date Diagnosis [...] Date Coverage End Date Valentino Parnell [address] [place] [address] [id number] Poncho Aguila Self - patient is the insured Medical (General) History Medical History History ICD Code Arthritis High blood pressure thyroid Surgical History Surgery Date(Month/Year) foot surgery, right 2018 left foot surgery colonoscopy wisdom teeth extraction Mod Lezama Left or possible 1st MPJ Imp lant Left P/B 12/26/23
--- OUTSIDE RECORDS SUMMARY | 2024-12-29 15:05 | XMS_ITS | Clinical Summary ---
Author Organization 175 [facility] Address [address] [place] [address] Phone Care Team Providers Care Tire Mold Tester Name Role Phone Fely Glass MD Primary [...] tablet, 0 Refills, Maintenance, 12/10/22 9:04:00 EDT, [id number], 173.2, cm, 10/04/22 13:56:00 EDT, Height [...] E ORAL) Take by mouth. Activ e tamsulosin (FLOMAX) 0.4 mg 24 hr capsule Take 1 capsule (0.4 mg total) by mouth at bedtime. 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 Allergic rhinitis 12/18/2005 Encounters Date Type Department Care Team Description 11/24/[address] [facility] [address] [phone] Emelina Turcios [place] 11/19/2024 3:35 PM EDT Office Visit Pulmonology [facility] [address] [phone] Jessica Lobato, KAILASH Obstructive sleep apnea (Primary Dx); Allergic rhinitis, unspecified seasonality, unspecified trigger; Overweight (BMI 25.0-29.9) from Last 3 Months Immunizations Immunization Administration Dates Next Due Influenza Quadravalent, MDCK [...] LESION TRUNK / ARM / LEG PROCEDURE: MT EXCISION TUMOR SOFT TISSUE BACK/FLANK SUBQ <3CM; COMMENT: arm and flank - fatty tumors BUNIONECTOMY PROCEDURE: MT CORRJ HLX VLGS BNCTY SESMDC W/DOUBLE OSTEOTOMY; COMMENT: Bone fragment removed. COLONOSCOPY 12/16/2007 PROCEDURE: MT COLONOSCOPY FLX DX W/COLLJ SPEC WHEN PFRMD; [...] Grandfather [place] x br onchitis Maternal Grandmother Mother (Age 69) Liver fail ure - alcohol Paternal Grandfather Paternal Grandmother Sister 1 Alive Healthy? Sister 2 Alive [...] Sign Reading Time Taken Comments Blood Pressure 122/70 11/19/2024 3:57 PM EDT Pulse 70 11/19/2024 3:57 PM EDT Temperature 35.7 C (96.3 F) 11/19/2024 3:57 PM EDT Respiratory Rate 16 11/19/2024 3:57 PM EDT Oxygen Saturation 98% 11/19/2024 3:57 PM EDT Inhaled Oxygen Concentration - - Weight 87.1 kg (192 lb) 11/19/2024 3:57 PM EDT Height 177.8 cm (5' 10 ) 11/19/2024 3:57 PM EDT Body Mass Index 27.55 11/19/2024 3:57 PM EDT Plan of Treatment Upcoming Encounters Date Type Department Care Team (Late st Contact Info) Description 11/23/2025 11:00 AM EDT Office Visit Pulmonology - [address] [place] [address] Jessica Lobato, KAILASH [address] [place] [address] Health Maintenance Due Date Last Done Comments COVID-19 Vaccine (#1) 1962 Zoster Vaccines (1 of 2) 1976 Pneumococcal Vaccine: 50+ Years (1 of 1 - PCV) 2007 Abdominal Aortic Aneurysm (AAA) Screen 02/04/2022 Social Influencers of Health Screening 02/04/2022 Falls Risk Assessment 2022 Hypertension/CHF/CAD Annual BMP Blood Test 10/05/2022 10/05/2021 Depression Screening 02/27/2024 Influenza Vaccine (#1) 2024 , 12/14/2018, 11/14/2017, Additional history exists Cholesterol Screening [...] Procedure Name Priority Date/Time Associated Diagnosis Comments HOME SLEEP TEST Routine 11/19/2024 8:39 AM EDT ANNUAL BMP BLOOD TEST Routine 10/05/2021 LIPID PANEL Routine 10/05/2021 COLONOSCOPY Routine 01/10/2019 HEPATITIS C SCREENING Routine 09/02/2013 from Last 3 Months or Most Recently Relevant to Health Maintenance Results * Home sleep test (11/19/2024 8:39 AM EDT) [facility] Provider SLEEP CENTER ORDERABLES F inal Result * Annual BMP Blood Test (10/05/2021) Pathologist [facility] Annual BMP Blood Test abstracted Historical Provider HEALTH MAINTENANCE Final Result * (ABNORMAL) Lipid panel (10/05/2021) LDL/HDL Ratio 4 0 - 4 Triglycerides 155(A) 0 - 150 mg/dL Cholesterol 192 0 - 200 mg/dL HDL 55 >=40 mg/dL LDL Cholesterol 106(A) 0 - 100 mg/dL Blood Venous blood specimen / Unknown Historical Provider LAB BLOOD ORDERABLES Katherine l Result * Colonoscopy (01/10/2019) Colonoscopy no interpretation , abstracted Anatomical Region Laterality Modality Other Historical Provider HEALTH MAINTENANCE Final Result * Hepatitis C Screening (09/02/2013) Hepatitis C Screening abstracted us Historical Provider HEALTH MAINTENANCE Final Result from Last 3 Months or Most Recently Relevant to Health Maintenance Insurance [facility] Care Teams Tire Mold Tester Relationship Specialty Start Date End Date Fely Glass MD [address] [place] [address] RENATO Leo PCP - General 10/29/23
== END 2024-12-29 11:54 | disposition home or self-care (01) ==
LOC: HO.HMGAL 11:53
PROVIDERS: PCP Internal Medicine; Visit Provider Registered Nurse Emergency
DX: J30.89 Other allergic rhinitis (principal)
CPT/HCPCS: 95117; 95165

== ENCOUNTER 2025-01-12 14:10 | Outpatient (AMB) | payer BC, SELFPAY | END 2025-01-12 14:10 | disposition home or self-care (01) | LOC: HO.HMGAL 14:10 | PROVIDERS: PCP Internal Medicine; Visit Provider Registered Nurse Emergency | DX: J30.89 Other allergic rhinitis (principal) | CPT/HCPCS: 95117; 95165 ==

== ENCOUNTER 2025-01-26 10:25 | Outpatient (AMB) | payer BC, SELFPAY ==
--- OUTSIDE RECORDS SUMMARY | 2025-01-26 13:06 | XMS_ITS | Clinical Summary ---
Author Organization 175 [facility] Address 175 [place] [address] Phone Care Team Providers Care Cloth Picker Name Role Phone Fely Glass MD Primary [...] 06/10/2021 Obstructive sleep apnea 05/23/2021 Overview (03/24/2024): [facility] Home sleep test 05/15/2021; weight 185; [...] Department Care Team Description 11/24/2024 Telephone Pulmonology [facility] [address] [phone] Emelina Turcios [place] 11/19/2024 3:35 PM EDT Office Visit Pulmonology [facility] [address] [phone] Jessica Lobato, KAILASH Obstructive sleep apnea (Primary [...] LESION TRUNK / ARM / LEG PROCEDURE: [place] EXCISION TUMOR SOFT TISSUE BACK/FLANK SUBQ <3CM; COMMENT: arm and flank - fatty tumors BUNIONECTOMY PROCEDURE: [place] CORRJ HLX VLGS BNCTY SESMDC W/DOUBLE OSTEOTOMY; COMMENT: Bone fragment removed. COLONOSCOPY 12/16/2007 PROCEDURE: [place] COLONOSCOPY FLX DX W/COLLJ SPEC WHEN PFRMD; [...] Years Used Date Smoking Tobacco: Former Cigarettes 0 Q uit: 08/26/2010 Smokeless Tobacco: Never Alcohol [...] 11:00 AM EDT Office Visit Pulmonology - [address] [place] [address] Jessica Lobato, KAILASH [address] [place] [address] Health Maintenance Due Date Last [...] Home sleep test (11/19/2024 8:39 AM EDT) Historical Provider SLEEP CENTER ORDERABLES F inal Result * Annual BMP Blood Test (10/05/2021) Pathologist [facility] Annual BMP Blood Test abstracted Historical Provider [...] C Screening (09/02/2013) Hepatitis C Screening abstracted Historical Provider HEALTH MAINTENANCE Final Result from Last 3 Months or Most Recently Relevant to Health Maintenance Insurance [facility] Care Teams Cloth Picker Relationship Specialty Start Date End Date Fely Glass MD [address] [place], [place] [address]tonny Leo [place] PCP - General 10/29/23
== END 2025-01-26 10:26 | disposition home or self-care (01) ==
LOC: HO.HMGAL 10:25
PROVIDERS: PCP Internal Medicine; Visit Provider Registered Nurse Emergency
DX: J30.89 Other allergic rhinitis (principal)
CPT/HCPCS: 95117; 95165

== ENCOUNTER 2025-02-09 12:38 | Outpatient (AMB) | payer BC, SELFPAY ==
--- OUTSIDE RECORDS SUMMARY | 2023-12-11 10:45 | XMS_ITS ---
Author Organization [facility] Address [address] [place] [address] Care Team Providers Care Toy Assembler Name Role Phone Maria Luisa MANCIA, Fely Primary Care Provide r Unavailable Gabby Moore Unavailable [phone] Medications Medication SIG (Take, Route, Frequency, Duration) Notes Start Date End Date Status Voltaren 1 % as directed Externally 02/13/2023 Active Losartan Potassium 50 MG 1 tablet Orally Once a day; Duration: 30 day(s) Active Levothyroxine Sodium 137 MCG 1 tablet in the morning on an empty stomach Orally Once a day; Duration: 30 day(s) Active Encounters Encounter Location Date Provider Diagnosis [address] [address] 12/11/2023 Gabby Moore Plan Of Treatment No Information Progress Notes * Poncho AGUILA BDOB: [birth year] (69 yo M)Acc No.[id number]:12/11/2023 Progress Note Patient: Poncho MARRUFO Provider: Andrei Moore DPM :1955 A ge:68 Y S ex:Male Date:12/11/2023 Address:[address], [place] Pcp:Fely Glass MD Subjective: * Chief Complaints: * * Medical History: * Medications: T aking Levothyroxine Sodium 137 MCG Tablet 1 tablet in the morning on an empty stomach Orally Once a day , Taking Losartan Potassium 50 MG Tablet 1 tablet Orally Once a day , Taking Voltaren 1 % Gel as directed Externally Objective: * Vitals: Assessment: Plan: * Treatment: * Images: * The named appointment provid er may or may not be the originator of this progress note, and it is not deemed complete until electronically signed by the appointment provider. Sign off status: Pending * Provider: Andrei Moore DPM Date: Generated for Sofia grimaldo/Lety/Radha on: 04/12/2024 06:16 PM EST
--- OUTSIDE RECORDS SUMMARY | 2023-12-26 09:45 | XMS_ITS ---
Author Organization [facility] Address [address] [facility] [place] [address] Care Team Providers Care Sales Project Engineer Name Role Phone Maria Luisa MANCIA, Fely Primary Care Provide r Unavailable Gabby Moore Unavailable [phone] Encounters Encounter Location Date Provider Diagnosis Surgery [facility] ([facility]/[address] [place] [address] 12/26/2023 Gabby Moore Plan Of Treatment No Information Progress Notes * Poncho AGUILA BDOB: [birth year] (69 yo M)Acc No.[id number]:12/26/2023 Patient: Breann JOVELPoncho Provider: Andrei Moore DPM :1955 A ge:68 Y S ex:Male Date:12/26/2023 Address:[address] [facility] [place] Pcp:Fely Glass MD * Images: * The named appointment provid er may or may not be the originator of this progress note, and it is not deemed complete until electronically signed by the appointment provider. Sign off status: Pending * Provider: Andrei Moore DPM Date: Generated for Sofia grimaldo/Fagiovannig/eTransmitting on: 04/12/2024 06:16 PM EST
--- OUTSIDE RECORDS SUMMARY | 2025-02-09 18:17 | XMS_ITS | Patient Health Record ---
Author Organization [facility] Address [address] [facility] [place] [address] Care Team Providers Care Diamond Broker Name Role Phone Maria Luisa MANCIA, Fely Primary Care Provide r Unavailable Gabby Moore Unavailable [phone] Allergies Allergen (clinical drug ingredient) Drug/Non Drug [...] Status Risk Notes Problem Acquired hallux rigidus (2965471) Hallux rigidus, left foot (M20.22) Active confirmed Problem Localized, primary osteoarthritis of the ankle and/or foot (159237699) Primary osteoarthritis of left foot (M19.072) Active confirmed Problem Acquired hallux valgus (20768391) Hallux valgus, left (M20.12) Active confirmed Plan Of Treatment Pending Test Test Name [...] Insured Coverage Start Date Coverage End Date [facility] [address] [place] [address] [id number] Poncho Aguila Self - patient is the insured Medical (General) History Medical History History ICD Code Arthritis High blood pressure thyroid Surgical History Surgery Date(Month/Year) foot surgery, right 2018 left foot surgery colonoscopy wisdom teeth extraction Mod Lise Left or possible 1st MPJ Imp lant Left P/B 12/26/23
--- OUTSIDE RECORDS SUMMARY | 2025-02-09 18:17 | XMS_ITS | Clinical Summary ---
Author Organization 175 [facility] Address 175 [facility] [place] [address] Phone Care Team Providers Care Cadence Specialists Name Role Phone Fely Glass MD Primary [...] 06/10/2021 Obstructive sleep apnea 05/23/2021 Overview (03/24/2024): [facility] Home sleep test 05/15/2021; weight 185; BMI [...] Department Care Team Description 11/24/[address] [facility] [address] [phone] Emelina Turcios [place] 11/19/2024 3:35 PM EDT Office Visit Pulmonology [facility] [address] [phone] Jessica Lobato, KAILASH Obstructive sleep apnea (Primary [...] LESION TRUNK / ARM / LEG PROCEDURE: SD EXCISION TUMOR SOFT TISSUE BACK/FLANK SUBQ <3CM; COMMENT: arm and flank - fatty tumors BUNIONECTOMY PROCEDURE: SD CORRJ HLX VLGS BNCTY SESMDC W/DOUBLE OSTEOTOMY; COMMENT: Bone fragment removed. COLONOSCOPY 12/16/2007 PROCEDURE: SD COLONOSCOPY FLX DX W/COLLJ SPEC WHEN PFRMD; [...] on file Sexual Orientation Not on file Last Filed Vital Signs Vital Sign Reading [...] 11:00 AM EDT Office Visit Pulmonology - [address] [place] [address] Jessica Lobato, KAILASH [address] [place] [address] Health Maintenance Due Date Last [...] Home sleep test (11/19/2024 8:39 AM EDT) [facility] Provider SLEEP CENTER ORDERABLES F inal Result * Annual BMP Blood Test (10/05/2021) Pathologist [facility] Annual BMP Blood Test abstracted Historical [...] Maintenance Insurance [facility] Care Teams Cadence Specialists Relationship Specialty Start Date End Date Fely Glass MD [address] [place] [address] RENATO Leo PCP - General 10/29/23
== END 2025-02-09 12:39 | disposition home or self-care (01) ==
LOC: HO.HMGAL 12:38
PROVIDERS: PCP Internal Medicine; Visit Provider Registered Nurse Emergency
DX: J30.89 Other allergic rhinitis (principal)
CPT/HCPCS: 95117; 95165